=== PATIENT | female | born 1970 | race Caucasian/White ===

== ENCOUNTER 2017-06-09 10:27 | Emergency (ER) | payer MEDICAID ==
[~2017-06-09] VITALS: Ht 165.1 cm; Wt 91.0 kg
[2017-06-09 10:33] VITALS: BP 152/95
[2017-06-09] MEDS ORDERED: ACETAMINOPHEN 325MG TABLET PO ONE (11:15)
== END 2017-06-09 12:37 | disposition home or self-care (01) ==
LOC: ER 11:03
DX: S30.0XXA Contusion of lower back and pelvis, initial encounter (principal); E78.00 Pure hypercholesterolemia, unspecified; F17.210 Nicotine dependence, cigarettes, uncomplicated; V19.88XA Pedal cyclist (driver) (passenger) injured in other specified transport accidents, initial encounter; Y93.55 Activity, bike riding; Y92.89 Other specified places as the place of occurrence of the external cause; Y99.8 Other external cause status
CPT/HCPCS: 72100; 99284

== ENCOUNTER 2022-06-29 15:41 | Emergency (ER) | payer BC, MEDICAID ==
[~2022-06-29] VITALS: Ht 165.1 cm; Wt 91.0 kg
[2022-06-29] MEDS ORDERED: HYDROCODONE/ACETAMINOPHEN 5/325MG TABLET PO STA (17:34)
[2022-06-29] MEDS ORDERED: IBUP-2029 MT (19:59)
[2022-06-29] MEDS ORDERED: TRAM50TA3 MT (19:59)
[2022-06-29 20:15] VITALS: BP 104/63
[2022-06-29] MEDS ORDERED: HYDROCODONE/ACETAMINOPHEN 5/325MG TABLET PO NR (20:15)
== END 2022-06-29 21:30 | disposition home or self-care (01) ==
LOC: ER 15:41
DX: S90.32XA Contusion of left foot, initial encounter (principal); E78.00 Pure hypercholesterolemia, unspecified; X58.XXXA Exposure to other specified factors, initial encounter; Y93.89 Activity, other specified; Y92.89 Other specified places as the place of occurrence of the external cause; Y99.8 Other external cause status
CPT/HCPCS: 73630; 99283